=== PATIENT | male | born 1995 ===

== ENCOUNTER 2017-03-22 22:48 | Emergency (ER) | payer OTHER ==
[2017-03-22] MEDS ORDERED: IBUPROFEN 600 MG TABLET (FP) PO ONE (22:50)
[2017-03-22 22:58] VITALS: BP 150/88; PULSE 109; TEMP 98.4; BMI 25.1
--- NOTE | 2017-03-22 23:03 | PDOC ---
History of Present Illness - General Chief Complaint: Injury Stated Complaint: INJURY TO LEFT ANKLE Time Seen by Provider: 03/22/17 22:49 History Source: Patient Exam Limitations: No Limitations - History of Present Illness Initial Comments: 03/22/17 22:57 21 yo male no pmhx here with left ankle injury while playing basketball. happened earlier tonight. no knee or hip pain. sandhu worse with walking. is ambulating without assistance. no swelling. no prior injury or surgery to that ankle. terell mild no radiation. Occurred: reports: just prior to arrival Pain Location: reports: lower extremity Method of Injury: Yes: other (basketball injury) Past History - Past Medical History Allergies/Adverse Reactions: Allergies Allergy/AdvReac Type Severity Reaction Status Date / Time No Known Allergies Allergy Verified 03/22/17 22:50 Home Medications: Ambulatory Orders NK [No Known Home Medication] 03/22/17 Other medical history: DENIES - Psycho/Social/Smoking Cessation Hx Anxiety: No Suicidal Ideation: No Smoking History: Current every day smoker Have you smoked in the past 12 months: Yes Number of Cigarettes Smoked Daily: 1 Information on smoking cessation initiated: Yes 'Breaking Loose' booklet given: 03/22/17 Hx Alcohol Use: No Drug/Substance Use Hx: No Substance Use Type: None Review of Systems - Review of Systems Constitutional: No: Chills, Diaphoresis Respiratory: No: Orthopnea Cardiac (ROS): No: Chest Pain, Edema : No: Burning, Dysuria Musculoskeletal: Yes: Joint Pain Neurological: No: Headache, Numbness All Other Systems: Reviewed and Negative *Physical Exam - Vital Signs Last Vital Signs Temp Pulse Resp BP Pulse Ox 98.4 F 109 H 18 150/88 99 03/22/17 22:51 03/22/17 22:51 03/22/17 22:51 03/22/17 22:51 03/22/17 22:51 - Physical Exam General Appearance: Yes: Appropriately Dressed HEENT: positive: YVETTE Neck: positive: Trachea midline Respiratory/Chest: positive: Lungs Clear, Normal Breath Sounds. negative: Chest Tender, Respiratory Distress Cardiovascular: positive: Regular Rhythm, Regular Rate, S1, S2. negative: Edema Musculoskeletal: positive: Normal Inspection Extremity: positive: Normal Capillary Refill, Normal Inspection, Other (mild left lateral fibular ttp. no swelling no eccymosis. no lat or med mall tenderness. from distally n/v intact. no proximal fibular pain.) ED Treatment Course - RADIOLOGY Radiology Studies Ordered: Category Date Time Status ANKLE & FOOT-LEFT* [RAD] Stat Radiology 03/22/17 22:49 Ordered Medical Decision Making - Medical Decision Making 03/22/17 22:59 plan xray pain medication [facility] *DC/Admit/Observation/Transfer Diagnosis at time of Disposition: Injury of left ankle - Discharge Dispostion Disposition: HOME Condition at time of disposition: Improved - Referrals Referrals: Michael Fuentes MD [Staff Physician] - - Patient Instructions Printed Discharge Instructions: Ankle Sprain Additional Instructions: take ibuprofen 600 mg every 8 hours as needed for pain. you can wear a velcrox ankle splint for comfort. you can bear weight on the ankle as tolerated. ice and elevate to reduce swelling. follow up with orthopedics , see information for dr. fuentes , call to schedule within 1 - 2 weeks as needed.
== END 2017-03-22 23:14 | disposition home or self-care (01) ==
LOC: FER 22:48
DX: S99.912A Unspecified injury of left ankle, initial encounter (principal); X58.XXXA Exposure to other specified factors, initial encounter; Y93.67 Activity, basketball; Y92.310 Basketball court as the place of occurrence of the external cause; F17.210 Nicotine dependence, cigarettes, uncomplicated
CPT/HCPCS: 73610-TC-LT; 73630-TC-LT; 99281-25